=== PATIENT | female | born 1985 | race Caucasian/White ===

== ENCOUNTER 2016-12-23 13:02 | Emergency (ER) | payer OTHER ==
[~2016-12-23] VITALS: Ht 170.2 cm; Wt 99.8 kg
[2016-12-23 13:02] VITALS: BP_SYST 123
[2016-12-23] MEDS ORDERED: PREDNISONE 20 MG TABLET PO ONE (13:30)
[2016-12-23] MEDS ORDERED: IPRATROPIUM BROM 0.5 MG/2.5 ML VIAL.NEB (ATROVENT) IH ONE (13:30)
[2016-12-23] MEDS ORDERED: ALBUTEROL SULFATE 0.083% 2.5 MG/3 ML VIAL.NEB IH ONE (13:30)
== END 2016-12-23 14:47 | disposition left against medical advice (07) ==
LOC: SED 13:02
DX: J45.901 Unspecified asthma with (acute) exacerbation (principal); F17.200 Nicotine dependence, unspecified, uncomplicated; Z71.6 Tobacco abuse counseling; Z53.20 Procedure and treatment not carried out because of patient's decision for unspecified reasons
CPT/HCPCS: 94640; 99283; J7512